=== PATIENT | male | born 1990 | race Caucasian/White ===

== ENCOUNTER 2018-10-25 22:49 | Emergency (ER) | payer OTHER ==
[~2018-10-25] VITALS: Ht 175.3 cm; Wt 81.7 kg
[~2018-10-25 22:49] MED LIST: CYCL10 PO; Cleocin HCl150 MG PO; DIAZ10; DIAZ10 PO; HYDACE5; IBUP600 PO; NAPR550 PO; PENVK500; RXHYDACE PO; RXNAPNA550 PO; Ultram50 MG PO
[2018-10-26] MEDS ORDERED: CIPR500 PO (01:39)
[2018-10-26] MEDS ORDERED: CRUTCH2 XX (01:40)
== END 2018-10-26 02:01 | disposition home or self-care (01) ==
LOC: ER 22:49
DX: S91.312A Laceration without foreign body, left foot, initial encounter (principal); W22.8XXA Striking against or struck by other objects, initial encounter; Z79.899 Other long term (current) drug therapy
CPT/HCPCS: 12001; 90471; 90714; 99282-25

== ENCOUNTER 2025-04-09 13:34 | Emergency (ER) | payer BC ==
[~2025-04-09] VITALS: Ht 175.3 cm; Wt 72.6 kg
[~2025-04-09 13:34] MED LIST changes: +CIPR500 PO; +CRUTCH2 XX
[2025-04-09 14:02] VITALS: BP 140/86
== END 2025-04-09 19:19 | disposition home or self-care (01) ==
LOC: ER 13:34
DX: S61.012A Laceration without foreign body of left thumb without damage to nail, initial encounter (principal); W29.0XXA Contact with powered kitchen appliance, initial encounter; Z79.2 Long term (current) use of antibiotics
CPT/HCPCS: 12001; 73140; 99283-25; A9270